=== PATIENT | male | born 1980 | race Caucasian/White ===

== ENCOUNTER 2016-11-23 01:06 | Observation (INO) | payer OTHER ==
--- NOTE | ~2016-11-23 | OR ---
Unit #: [id number] #: [id number] Patient: CINTHIA VANESSA [id number] [address] [place], [place] [address] [id number] I MR#: [id number] NAME: CINTHIA VANESSA. ROOM: 464 Date of Procedure: 11/23/2016 Admission Date: 11/23/2016 Surgeon: Caleb Hilliard M.D. : 1980 Attending Physician: Luis Alberto Rosa M.D. Primary Care Physician: hPillip Torre Aprn OPERATIVE REPORT REVISED REPORT PREOPERATIVE DIAGNOSIS Perianal abscess. POSTOPERATIVE DIAGNOSIS Internal drainage of perianal abscess. ANESTHESIA General anesthesia. ESTIMATED BLOOD LOSS Minimal. IV FLUIDS 400 crystalloid. COMPLICATIONS None. INDICATIONS FOR PROCEDURE The patient is a 35-year-old gentleman, who presents with a recurrent perianal abscess. He presents for examination under anesthesia. DESCRIPTION OF PROCEDURE The patient was taken to the operating theater and placed in supine position. General anesthesia was induced. His perineal region was prepped and draped. Using anal speculum, I was able to identify the abscess. This appeared to be relatively internal and superficial. An 11-blade blade was then used and expressed gross purulence. This was then opened with a hemostat. I then irrigated and gained hemostasis with the Bovie. I then packed with Gel-Foam. The patient tolerated the procedure well and sent to recovery room in good condition . Dictated by... Emeli Boyikn/shanda TD: 11/23/2016 23:50 JOB #: [id number] Unit #: [id number] #: [id number] Patient: CINTHIA VANESSA OPERATIVE REPORT Page 1 of 1 X Caleb Hilliard MD X PROCEDURE OPERATIVE NOTE
--- NOTE | ~2016-11-23 | CT2 ---
[facility] A Service of [facility] RADIOLOGY TEXT RESULTS PATIENT: CINTHIA VANESSA LOCATION: [facility] [id number] : [birth year] UNIT #: [id number] AGE: [address]: Luis Alberto Rosa SEX: M ORDER DR: [id number] [facility] [address] [place], [place] [address] [id number] I MR#: [id number] #: [id number] NAME: CINTHIA VANESSA. : 1980 SEX: M STUDY DATE/TIME: 11/23/2016 04:28 UNIT: [facility] ROOM: [id number] STUDY DESCRIPTION: CT Abd and Pelv W Cont Attending Physician: Luis Alberto Rosa M.D. Ordering Physician: Raimundo Womack Aprn Primary Care Physician: Phillip Torre Aprn MEDICAL IMAGING REPORT This report is preliminary unless electronic signature is present EXAM Abdomen and pelvis CT 11/23 at 04:28 INDICATIONS Recurring mass in the groin and prostate area with pain over the last 3 days. TECHNIQUE Axial images were obtained through the abdomen and pelvis following oral and IV contrast administration. Multiplanar reformats were obtained. Comparison is made with 09/20/2016. This CT exam was performed with one or more of the following radiation dose reduction techniques: automatic exposure control, adjustment of mA and/or kV according to patient size, and iterative reconstruction. FINDINGS Abdomen: There is some mild atelectasis in the lung bases. Gallbladder is normal. There is no biliary obstruction. Solid organs remain normal. No free fluid or adenopathy is seen. GI tract is normal. Pelvis: Urinary bladder is normal. Prostate contains some dystrophic calcification but is otherwise unremarkable. The GI tract including the appendix is normal. There is a perianal abscess noted. It measures about 3.0 x 1.6 x 2.2 cm in size. IMPRESSION 1. Perianal abscess measuring 3.0 x 1.6 x 2.2 cm. 2. The remainder of the abdomen and pelvis CT is normal. Dictated by... Abiel Rao Jr., M.D. [facility] A Service of [facility] RADIOLOGY TEXT RESULTS PATIENT: CINTHIA VANESSA LOCATION: [facility] [address] : [birth year] UNIT #: [id number] AGE: [address]: Luis Alberto Rosa SEX: M ORDER DR: THIS IS AN ELECTRONICALLY VERIFIED REPORT Abiel Rao Jr., M.D. at 11/26/2016 8:36 AM Denia TD: 11/23/2016 06:35 JOB #: [id number] MEDICAL IMAGING REPORT Page 1 of 1 COPY
--- NOTE | ~2016-11-23 | CO ---
Unit #: [id number] #: [id number] Patient: CINTHIA VANESSA [id number] [address] [place], [place] [address] [id number] I MR#: [id number] NAME: CINTHIA VANESSA. ROOM: [id number] Age: 35 Sex: M Admission Date: 11/23/2016 : 1980 Attending Physician: Luis Alberto Rosa M.D. Primary Care Physician: Phillip Torre Aprn CONSULTATION REPORT BRIEF HISTORY Patient is a 35-year-old gentleman with acute onset of pain over the last couple of days in his perirectal region. He has had a history of perirectal abscesses and had these drained x2. He has no history of Crohn disease and no fevers or chills. He has been on antibiotics over the last day, leftovers from his last drainage. PAST HISTORY Osteoarthritis and kidney stones. SURGICAL HISTORY No abdominal operations. MEDICATIONS No chronic medications. SOCIAL HISTORY Does drink routinely. Does smoke one pack per day. FAMILY HISTORY Negative for GI malignancy. REVIEW OF SYSTEMS No cardiopulmonary complaints at this time. (1) 10 systems reviewed and negative. PHYSICAL EXAMINATION GENERAL: He is awake, alert, and appropriate. VITAL SIGNS: Currently afebrile. HEENT: Unremarkable. NECK: Supple. No JVD. Trachea midline. LUNGS: Clear to auscultation. Bilateral breath sounds symmetric. CARDIOVASCULAR: Regular rate and rhythm. ABDOMEN: Soft, nontender, and nondistended. (2) mass. No hepatosplenomegaly. EXTREMITIES: No clubbing, cyanosis, or edema. PERINEAL: Exam shows tenderness in the posterior rectal region. Very tender on rectal exam posterior. I palpated an area of fluctuance. PLAN Perianal abscess, chronic. Consider a chronic fistula. Will evaluate under anesthesia. Discussed in detail. Unit #: [id number] #: [id number] Patient: CINTHIA VANESSA Dictated by... Emeli Boykin/otto TD: 11/23/2016 09:31 JOB #: [id number] CONSULTATION REPORT Page 1 of 1 X Caleb Hilliard MD CONSULTATION REPORT
[~2016-11-23 01:06] MED LIST: ACETAMINOPHEN325 MG PO; ACETAMINOPHEN650 M1 PO; AMOXICILLIN500 M1 PO; AMOXICILLIN875 MG PO; AUGMENTIN; AUGMENTIN PO; AUGMENTIN875 MG PO; CIPRO PO; DICLOFENAC PO; DURATUSS PO; FLOMAX0.4 M1 PO; HYCODAN SYRUP; IBUPROFEN800 MG PO; LIBRIUM PO; LORTAB 5-325 M1 EACH PO; LORTAB 7.5-3251 EACH PO; MEDROL DOSEPAK4 MG PO; MOBIC PO; NABUMETONE PO; NO MEDICATIONS; PEN-VEE K; PEN-VEE K PO; PERCOCET 7.5/321 TAB PO; PHENERGAN25 M1 PO; TYLOX1 CAP 5/50 PO; ULTRAM PO; VENTOLIN INHALER; VIBRAMYCIN100 M1 PO; VICODIN 5/500 T1 TAB PO; VOLTAREN50 MG PO; VOLTAREN75 MG PO; WELLBUTRIN; [UNRECOGNIZED DRUG - CODE] PO
[2016-11-23 03:29] LABS: BASOPHIL# 0.1 X10e3 (0-0.3); BASOPHIL% 0.6 % (0-2.5); EOSINOPHIL# 0.6 X10e3 (0-0.7); HEMATOCRIT 41.9 % (38.0-50.0); HEMOGLOBIN 13.9 gm/dL (13.0-16.0); LYMPHOCYTE# 2.6 X10e3 (1.0-3.5); LYMPHOCYTE% 18.2 % (17.0-45.0); MEAN CELL VOLUME 90.1 FL (83-96); MEAN CORPUSCULAR HEMOGLOBIN 29.9 PG (28-34); MEAN CORPUSCULAR HGB CONC 33.1 g/dL (30-36); MEAN PLATELET VOLUME 8.8 FL (6.5-11.5); MONOCYTE% 7.1 % (3.0-12.0); NEUTROPHIL# 10.2 X10e3 (1.5-7.1); NEUTROPHIL% 70.1 % (40-75); PLATELET COUNT 281 X10e3 (140-420); RED BLOOD COUNT 4.66 X10e (3.90-5.60); RED CELL DISTRIBUTION WIDTH 13.5 % (11.0-15.5); WHITE BLOOD COUNT 14.5 X10e3 (4.0-10.5)
[2016-11-23 03:38] LABS: DIFF IND NO
[2016-11-23 03:52] LABS: ALBUMIN SERUM 4.3 g/dL (3.5-5.0); BILIRUBIN, DIRECT 0.1 mg/dL (0.0-0.2); BILIRUBIN,INDIRECT 0.4 mg/dL (0.0-0.9); BILIRUBIN,TOTAL 0.5 mg/dL (0.2-2.0); BUN/CREATININE RATIO 11.11; CREATININE SERUM 0.9 mg/dL (0.6-1.4); GLOM FILT RATE Estimated 109.5 mL/min (>60); POTASSIUM 3.8 mmol/L (3.5-5.1); PROTEIN TOTAL SERUM 7.2 g/dL (6.0-8.3)
[2016-11-23 03:57] LABS: URINE APPEARANCE CLEAR; URINE BILIRUBIN NEG (NEG); URINE BLOOD NEG (NEG); URINE COLOR YELLOW; URINE GLUCOSE NEG (NEG); URINE KETONE TRACE (NEG); URINE LEUKOCYTE ESTERASE TRACE (NEG); URINE NITRATE NEG (NEG); URINE PROTEIN NEG (NEG); URINE SPECIFIC GRAVITY 1.024 (1.003-1.035)
[2016-11-23 03:59] LABS: CULTURE INDICATED? YES; URBCS1 AUWI 0-2 /[HPF] (0-2); URINE BACTERIA AUWI NEG (NEGATIVE); URINE SQUAMOUS EPITHELIAL CELL NONE SEEN /[HPF]
[2016-11-23] MEDS ORDERED: NORCO 7.5-3251 EACH PO (18:00)
[2016-11-23] MEDS ORDERED: COLACE PO (18:00)
[2016-11-23] MEDS ORDERED: LEVAQUIN PO (18:01)
== END 2016-11-23 18:23 | disposition home or self-care (01) | DRG 349 ==
LOC: CED 01:06 → CEDOF 05:12 → CED 05:20 → C4C 05:20 → CEDOF 05:20 → C4C 09:59 → CEDOF 09:59 → C4C 18:23
PROVIDERS: Nurse Practitioner Family; Surgery
PROC: 0D9Q0ZZ Drainage of Anus, Open Approach (ICD-10-PCS; principal; 2016-11-23 16:30)
DX: K61.0 Anal abscess (principal); M19.90 Unspecified osteoarthritis, unspecified site; F17.200 Nicotine dependence, unspecified, uncomplicated; Z79.2 Long term (current) use of antibiotics; Z79.899 Other long term (current) drug therapy; Z79.891 Long term (current) use of opiate analgesic; Z87.442 Personal history of urinary calculi; Z88.5 Allergy status to narcotic agent
CPT/HCPCS: 36415; 74177; 80048; 80076; 81003; 85025; 87086; 96361; 96374; 96375; 99285; G0378; J1170; J1956; J2270; J3010; Q9967